=== PATIENT | female | born 1980 | race Caucasian/White ===

== ENCOUNTER 2021-08-21 11:20 | Emergency (ER) | payer BC ==
[2021-08-21] MEDS ORDERED: Lactated Ringers 1,000 ML IV ONE (12:31)
[2021-08-21] MEDS ORDERED: Famotidine 20 MG/2 ML SDV IVPUSH ONE (12:31)
[2021-08-21] MEDS ORDERED: Alum Hydrox/Mag Hydrox/Simeth 30 ML, Lidocaine 2% 15 ML PO ONE ×2 (14:22)
[2021-08-21] MEDS ORDERED: Acetaminophen 325 MG Tab PO ONE (14:22)
== END 2021-08-21 19:03 | disposition home or self-care (01) ==
LOC: JD.ED 11:20
DX: O99.891 Other specified diseases and conditions complicating pregnancy (principal); R10.13 Epigastric pain; E11.9 Type 2 diabetes mellitus without complications; Z79.4 Long term (current) use of insulin; Z3A.18 18 weeks gestation of pregnancy
CPT/HCPCS: 36415; 76705; 76815; 80053; 81001; 82947; 83690; 84484; 85025; 93005; 96374; 99284; A9270; J3490; J7120; 93010; 99283

== ENCOUNTER 2021-10-11 08:28 | Emergency (ER) | payer BC ==
[2021-10-11] MEDS ORDERED: LORazepam 1 MG Tab PO ONE (09:14)
== END 2021-10-11 11:20 | disposition home or self-care (01) ==
LOC: JD.ED 08:28
DX: O99.342 Other mental disorders complicating pregnancy, second trimester (principal); O09.522 Supervision of elderly multigravida, second trimester; O24.112 Pre-existing type 2 diabetes mellitus, in pregnancy, second trimester; F41.0 Panic disorder [episodic paroxysmal anxiety]; F45.8 Other somatoform disorders; E66.9 Obesity, unspecified; Z79.4 Long term (current) use of insulin; Z68.30 Body mass index [BMI] 30.0-30.9, adult; Z87.891 Personal history of nicotine dependence; Z3A.26 26 weeks gestation of pregnancy
CPT/HCPCS: 99283; A9270

== ENCOUNTER 2021-11-25 11:16 | Emergency (ER) | payer BC ==
[2021-11-25] MEDS ORDERED: Albuterol/Ipratropium 3.0-0.5 MG/3 ML Neb Soln NEB ONE (11:39)
[2021-11-25] MEDS ORDERED: LORazepam 1 MG Tab PO ONE (11:39)
[2021-11-25] MEDS ORDERED: predniSONE 10 MG Tab PO ONE (12:36)
== END 2021-11-25 14:28 | disposition home or self-care (01) ==
LOC: JD.ED 11:16
DX: O99.513 Diseases of the respiratory system complicating pregnancy, third trimester (principal); J45.901 Unspecified asthma with (acute) exacerbation; O99.013 Anemia complicating pregnancy, third trimester; E11.9 Type 2 diabetes mellitus without complications; Z79.4 Long term (current) use of insulin; Z3A.31 31 weeks gestation of pregnancy
CPT/HCPCS: 36415; 71045; 80053; 81001; 83540; 84466; 85025; 94640; 99285; A9270; J7512; 99283; J7620-GY

== ENCOUNTER 2021-11-29 07:52 | Emergency (ER) | payer BC ==
[2021-11-29] MEDS ORDERED: Albuterol/Ipratropium 3.0-0.5 MG/3 ML Neb Soln NEB ONE (08:26)
[2021-11-29] MEDS ORDERED: methylPREDNISolone Sodium Succinate 125 MG/2 ML SDV IVPUSH ONE (08:26)
[2021-11-29] MEDS ORDERED: Famotidine 20 MG/2 ML SDV IVPUSH ONE (08:27)
[2021-11-29] MEDS ORDERED: diphenhydrAMINE 50 MG/ML SDV IVPUSH ONE (08:27)
[2021-11-29] MEDS: Sodium Chloride 0.9% 10 ML Syringe FLUSH PRN ×2 (08:45→10:06)
[2021-11-29 08:53] LABS: CORONAVIRUS COVID-19 NAA NEGATIVE (NEGATIVE)
[2021-11-29] MEDS ORDERED: Labetalol 100 MG/20 ML MDV IVPUSH ONE ×2 (09:11→10:35)
== END 2021-11-29 11:36 | disposition other institution (70) ==
LOC: JD.ED 07:52
DX: O99.513 Diseases of the respiratory system complicating pregnancy, third trimester (principal); J45.901 Unspecified asthma with (acute) exacerbation; O16.3 Unspecified maternal hypertension, third trimester; O24.113 Pre-existing type 2 diabetes mellitus, in pregnancy, third trimester; K21.9 Gastro-esophageal reflux disease without esophagitis; O14.93 Unspecified pre-eclampsia, third trimester; O47.03 False labor before 37 completed weeks of gestation, third trimester; Z79.4 Long term (current) use of insulin; Z20.822 Contact with and (suspected) exposure to COVID-19; Z3A.32 32 weeks gestation of pregnancy; Z98.891 History of uterine scar from previous surgery
CPT/HCPCS: 0240U; 36415; 59025; 80053; 81001; 85025; 94640; 96365; 96367; 96374; 96375; 96376; 99285; A9270; J1200; J2930; J3475; J3490; J7120; 99284; J7620-GY

== ENCOUNTER 2023-07-22 21:00 | Emergency (ER) | payer BC ==
[2023-07-22] MEDS: Amoxicillin/Clavulanate K 875-125 MG Tab PO ONE (22:06)
[2023-07-22] MEDS: diphenhydrAMINE 50 MG/ML SDV IM ONE (22:06)
[2023-07-22] MEDS: Metoclopramide 10 MG/2 ML SDV IM ONE (22:06)
[2023-07-22] MEDS: Ketorolac 60 MG/2 ML SDV IM ONE (22:06)
== END 2023-07-22 22:13 | disposition home or self-care (01) ==
LOC: JD.ED 21:00
DX: J01.90 Acute sinusitis, unspecified (principal); J45.909 Unspecified asthma, uncomplicated; K21.9 Gastro-esophageal reflux disease without esophagitis; E11.9 Type 2 diabetes mellitus without complications; E66.9 Obesity, unspecified; Z86.16 Personal history of COVID-19; Z79.51 Long term (current) use of inhaled steroids; Z79.4 Long term (current) use of insulin; Z79.84 Long term (current) use of oral hypoglycemic drugs; Z79.82 Long term (current) use of aspirin; Z79.899 Other long term (current) drug therapy; Z68.41 Body mass index [BMI] 40.0-44.9, adult; Z91.048 Other nonmedicinal substance allergy status
CPT/HCPCS: 96372; 99283; A9270; J1200; J1885; J2765